=== PATIENT | male | born 1960 | race Caucasian/White ===

== ENCOUNTER 2017-09-07 08:23 | Observation (INO) | payer OTHER ==
[~2017-09-07] VITALS: Ht 188 cm; Wt 152.9 kg
[~2017-09-07 08:23] MED LIST: HYDACE7.5 PO; LISHYD2025 PO; LISI20 PO; LOSARTAN-HCTZ1 EAC1 PO; Lovastatin20 MG PO; METF500 PO; METO100ER PO; NAPR220 PO; SULTRIDS PO
[2017-09-12 05:43] LABS: BASOPHILS ABSOLUTE AUTO 0.01 K/mm3 (0.00-0.23); BASOPHILS PERCENT AUTO 0 % (0-2); EOSINOPHILS ABSOLUTE AUTO 0.01 K/mm3 (0.00-0.68); EOSINOPHILS PERCENT AUTO 0 % (0-6); Hematocrit 41.6 % (37.0-53.0); Hemoglobin 14.4 g/dL (13.5-17.5); IMMATURE GRAN PERCENT AUTO 1 % (0-1); LYMPHOCYTES ABSOLUTE AUTO 0.98 K/mm3 (0.84-5.20); LYMPHOCYTES PERCENT AUTO 7 % (21-46); MONOCYTES ABSOLUTE AUTO 0.91 K/mm3 (0.16-1.47); MONOCYTES PERCENT AUTO 6 % (4-13); Mean Corpuscular HGB 30.7 pg (26.0-34.0); Mean Corpuscular HGB Conc 34.6 g/dL (31.5-36.5); Mean Corpuscular Volume 89 fL (80-100); NEUTROPHILS ABSOLUTE AUTO 13.07 K/mm3 (1.96-9.15); NEUTROPHILS PERCENT AUTO 87 % (41-73); RDW Coefficient Variation 12.8 % (11.7-14.2); RDW Standard Deviation 41.9 fL (35.1-46.3); Red Blood Cell Count 4.69 M/mm3 (4.30-5.90); White Blood Cell Count 15.08 K/mm3 (4.00-11.30)
[2017-09-12 05:48] LABS: Mean Platelet Volume 12.7 fL (9.1-12.4)
[2017-09-12 05:50] LABS: Anion Gap 8 mmol/L (6-16); Blood Urea Nitrogen 12 mg/dL (8-24); Bun/Creatinine Ratio 22.9 (12.0-20.0); CO2, Blood 27 mmol/L (21-32); Calcium, Blood 8.5 mg/dL (8.5-10.1); Chloride, Blood 101 mmol/L (98-108); Creatinine, Blood 0.53 mg/dL (0.60-1.20); Glomerular Filtration Rate >60 (60-); Glucose, Blood 135 mg/dL (70-99); Potassium, Blood 3.4 mmol/L (3.5-5.5); Sodium, Blood 136 mmol/L (136-145)
[2017-09-12 06:31] LABS: Mean Platelet Volume 10.6 fL (9.1-12.4); Platelet Count 195 K/mm3 (150-400)
[2017-09-12] MEDS ORDERED: Percocet 5-3251 EACH PO (08:12)
[2017-09-12] MEDS ORDERED: XARELTO10 MG PO (08:12)
== END 2017-09-12 13:20 | disposition home or self-care (01) ==
LOC: PRE IP 09-11 08:47 → SURS 09-11 08:47 → PRE IP 09-11 10:30 → SURS 09-11 14:55
PROVIDERS: Orthopaedic Surgery
PROC: 0SRC06Z Replacement of Right Knee Joint with Oxidized Zirconium on Polyethylene Synthetic Substitute, Open Approach (ICD-10-PCS; principal; 2017-09-11 10:30)
DX: M17.11 Unilateral primary osteoarthritis, right knee (principal); E66.01 Morbid (severe) obesity due to excess calories; I10 Essential (primary) hypertension; E11.9 Type 2 diabetes mellitus without complications; M06.9 Rheumatoid arthritis, unspecified; Z68.41 Body mass index [BMI] 40.0-44.9, adult; G47.33 Obstructive sleep apnea (adult) (pediatric); Z98.890 Other specified postprocedural states; Z87.891 Personal history of nicotine dependence; Z88.8 Allergy status to other drugs, medicaments and biological substances
CPT/HCPCS: 36415; 73560-RT; 80048; 82947; 85025; 85049; 86850; 86900; 86901; 88300; 94762; 96374; 96375; 96376; 97110; 97116; 97162; 97530; C1776; G0378; G8978; G8979; J0171; J0360; J0690; J0735; J1100; J1885; J2250; J2405; J2710; J2795; J3010; J7120

== ENCOUNTER → 2019-02-03 | Outpatient (CLI) | payer OTHER ==
[~2019-02-03] MED LIST changes: +AMLO5 PO; +CIPR500 PO; +Percocet 5-3251 EACH PO; +XARELTO10 MG PO
[2019-02-03 17:43] LABS: Bilirubin, Urine Neg (Neg); Blood, Urine 5+ (Neg); Glucose Qualitative, Urine Neg (Neg); Ketones, Urine 1+ (Neg); Leukocyte Esterase, Urine 1+ (Neg); Nitrite, Urine Neg (Neg); Protein, Urine 2+ (Neg); Urobilinogen, Urine NORM (Normal)
[2019-02-03 17:59] LABS: Appearance, Urine Cloudy (Clear); Color, Urine Red (P-Yellow)
[2019-02-03 18:00] LABS: Red Blood Cells, Urine TNTC /hpf (0-2); Squamous Epithelial Cells Few /hpf (Few); White Blood Cells, Urine 0-2 /hpf (0-5)
[2019-02-03 18:01] LABS: Bacteria Rare /hpf
== END ==
LOC: LAB SHORT 17:15 → LAB 17:15
PROVIDERS: Nurse Practitioner Family
DX: R35.0 Frequency of micturition (principal)
CPT/HCPCS: 81001; 87086

== ENCOUNTER 2019-02-06 09:03 | Emergency (ER) | payer OTHER ==
[~2019-02-06] VITALS: Ht 193 cm; Wt 155.1 kg
[~2019-02-06 09:03] MED LIST changes: -AMLO5 PO; -CIPR500 PO
[2019-02-06] MEDS ORDERED: AMLO5 PO (10:28)
[2019-02-06 10:29] LABS: BASOPHILS ABSOLUTE AUTO 0.04 K/mm3 (0.00-0.23); BASOPHILS PERCENT AUTO 0 % (0-2); EOSINOPHILS ABSOLUTE AUTO 0.08 K/mm3 (0.00-0.68); EOSINOPHILS PERCENT AUTO 1 % (0-6); Hematocrit 48.5 % (37.0-53.0); IMMATURE GRAN ABSOLUTE AUTO 0.04 K/mm3 (0.00-0.10); IMMATURE GRAN PERCENT AUTO 0 % (0-1); LYMPHOCYTES ABSOLUTE AUTO 1.52 K/mm3 (0.84-5.20); LYMPHOCYTES PERCENT AUTO 13 % (21-46); MONOCYTES ABSOLUTE AUTO 1.09 K/mm3 (0.16-1.47); MONOCYTES PERCENT AUTO 9 % (4-13); Mean Corpuscular HGB 31.9 pg (26.0-34.0); Mean Corpuscular HGB Conc 35.1 g/dL (31.5-36.5); Mean Corpuscular Volume 91 fL (80-100); NEUTROPHILS ABSOLUTE AUTO 8.93 K/mm3 (1.96-9.15); NEUTROPHILS PERCENT AUTO 76 % (41-73); RDW Coefficient Variation 12.7 % (11.7-14.2); RDW Standard Deviation 41.8 fL (35.1-46.3); Red Blood Cell Count 5.33 M/mm3 (4.30-5.90)
[2019-02-06] MEDS ORDERED: CIPR500 PO (10:29)
[2019-02-06 10:35] LABS: Mean Platelet Volume 12.5 fL (9.1-12.4); Platelet Count 29 K/mm3 (150-400)
[2019-02-06 11:06] LABS: Alanine Aminotransfer (ALT/SGP 50 U/L (12-78); Albumin, Blood 4.4 g/dL (3.4-5.0); Albumin/Globulin Ratio 1.2 (0.8-1.8); Alk Phos 75 U/L (50-136); Anion Gap 11 mmol/L (6-16); Aspartate Aminotrans (AST/SGOT 23 U/L (12-37); Bilirubin, Total 1.8 mg/dL (0.1-1.0); Blood Urea Nitrogen 19 mg/dL (8-24); Bun/Creatinine Ratio 14.8 (12.0-20.0); CO2, Blood 25 mmol/L (21-32); Calcium, Blood 9.5 mg/dL (8.5-10.1); Chloride, Blood 100 mmol/L (98-108); Creatinine, Blood 1.28 mg/dL (0.60-1.20); Globulin, Blood 3.8 g/dL (2.2-4.0); Glomerular Filtration Rate >60 (60-); Glucose, Blood 150 mg/dL (70-99); Potassium, Blood 3.5 mmol/L (3.5-5.5); Sodium, Blood 136 mmol/L (136-145); Total Protein, Blood 8.2 g/dL (6.4-8.2)
[2019-02-06 12:12] LABS: Source, Urine Clean Catch
[2019-02-06 12:17] LABS: Appearance, Urine Hazy (Clear); Bilirubin, Urine Neg (Neg); Blood, Urine 5+ (Neg); Color, Urine Yellow (P-Yellow); Glucose Qualitative, Urine Neg (Neg); Ketones, Urine 4+ (Neg); Leukocyte Esterase, Urine 1+ (Neg); Nitrite, Urine Neg (Neg); Protein, Urine 2+ (Neg); Specific Gravity, Urine 1.025 (1.003-1.022); Urobilinogen, Urine NORM (Normal)
[2019-02-06 12:34] LABS: Bacteria Rare /hpf; Red Blood Cells, Urine TNTC /hpf (0-2); Squamous Epithelial Cells Few /hpf (Few); White Blood Cells, Urine 0-2 /hpf (0-5)
== END 2019-02-06 15:20 | disposition short-term general hospital (02) ==
LOC: ER 09:03
PROVIDERS: Emergency Medicine
DX: N13.2 Hydronephrosis with renal and ureteral calculous obstruction (principal); I10 Essential (primary) hypertension; Z87.891 Personal history of nicotine dependence; Z79.899 Other long term (current) drug therapy; Z79.84 Long term (current) use of oral hypoglycemic drugs
CPT/HCPCS: 36415; 74176; 80053; 81001; 83690; 85025; 87086; 96361; 96374; 99285-25; J1885; J7120

== ENCOUNTER → 2019-03-21 | Outpatient (CLI) | payer OTHER ==
[~2019-03-21] MED LIST changes: +AMLO5 PO; +CIPR500 PO
[2019-03-25 09:07] LABS: BRUSHITE 2.55 ratio (0.00-3.00); CALCIUM OXALATE 14.39 ratio (0.00-6.00); CALCIUM, URINE 18.7 mg/dL (Not Estab.); CALCIUM, URINE 280.5 mg/24 hr (100.0-300.0); CHLORIDE URINE 243 (110-250); CITRIC ACID (CITRATE) 612 mg/L (Not Estab.); CITRIC ACID(CITRATE) 918 mg/24 hr (320-1240); CREATININE, URINE 161.7 mg/dL (Not Estab.); CREATININE, URINE 2425.5 mg/24 hr (1000.0-2000.0); MAGNESIUM, URINE 8.3 mg/dL (Not Estab.); MONOSODIUM URATE 16.16 ratio (0.00-4.00); OSMOLALITY, URINE 783 (300-900); SODIUM, URINE 176 mmol/L (Not Estab.); SODIUM, URINE 264 (58-337); STRUVITE 0.06 ratio (0.00-1.00); URIC ACID 2.93 ratio (0.00-1.20); URINE VOLUME 1500 mL/24 hr (800-1800); URINE VOLUME (PRESERVATIVE) 1500 mL/24 hr (800-1800)
== END | disposition home or self-care (01) ==
LOC: LAB SHORT 10:00 → LAB 10:00 → LAB FUT 03-13 16:05
PROVIDERS: Urology
DX: N20.1 Calculus of ureter (principal)
CPT/HCPCS: 81003; 81050; 82131; 82140; 82340; 82436; 82507; 82570; 83735; 83935; 83945; 84105; 84133; 84300; 84392; 84560

== ENCOUNTER → 2019-08-15 | Outpatient (CLI) | payer OTHER ==
[2019-08-25 12:06] LABS: BRUSHITE 2.52 ratio (0.00-3.00); CALCIUM OXALATE 6.55 ratio (0.00-6.00); CALCIUM, URINE 16.7 mg/dL (Not Estab.); CHLORIDE URINE 93 (110-250); CITRIC ACID (CITRATE) 489 mg/L (Not Estab.); CITRIC ACID(CITRATE) 1467 mg/24 hr (320-1240); CREATININE, URINE 67.6 mg/dL (Not Estab.); MONOSODIUM URATE 1.43 ratio (0.00-4.00); OSMOLALITY, URINE 314 (300-900); SODIUM, URINE 132 (58-337); SODIUM, URINE 44 mmol/L (Not Estab.); STRUVITE 0.02 ratio (0.00-1.00); URIC ACID 1.02 ratio (0.00-1.20); URINE VOLUME 3000 mL/24 hr (800-1800); URINE VOLUME (PRESERVATIVE) 3000 mL/24 hr (800-1800)
== END | disposition home or self-care (01) ==
LOC: LAB SHORT 12:30 → LAB 12:30 → LAB FUT 05-28 15:00
PROVIDERS: Urology
DX: Z12.5 Encounter for screening for malignant neoplasm of prostate (principal); N20.1 Calculus of ureter
CPT/HCPCS: 81003; 81050; 82131; 82140; 82340; 82436; 82507; 82570; 83735; 83935; 83945; 84105; 84133; 84300; 84392; 84560

== ENCOUNTER 2021-04-07 14:07 | Emergency (ER) | payer OTHER ==
[~2021-04-07] VITALS: Ht 193 cm; Wt 146.5 kg
[2021-04-07 15:22] LABS: Alanine Aminotransfer (ALT/SGP 121 U/L (12-78); Albumin, Blood 2.3 g/dL (3.4-5.0); Albumin/Globulin Ratio 0.6 (0.8-1.8); Alk Phos 629 U/L (50-136); Anion Gap 11 mmol/L (6-16); Aspartate Aminotrans (AST/SGOT 82 U/L (12-37); Bilirubin, Total 5.7 mg/dL (0.1-1.0); Blood Urea Nitrogen 12 mg/dL (8-24); CO2, Blood 19 mmol/L (21-32); Calcium, Blood 8.2 mg/dL (8.5-10.1); Chloride, Blood 105 mmol/L (98-108); Creatinine, Blood 0.75 mg/dL (0.60-1.20); Globulin, Blood 3.8 g/dL (2.2-4.0); Glomerular Filtration Rate >60 (60-); Glucose, Blood 178 mg/dL (70-99); Potassium, Blood 3.4 mmol/L (3.5-5.5); Sodium, Blood 135 mmol/L (136-145); Total Protein, Blood 6.1 g/dL (6.4-8.2)
[2021-04-07 17:18] LABS: BASOPHILS ABSOLUTE AUTO 0.07 K/mm3 (0.00-0.23); BASOPHILS PERCENT AUTO 1 % (0-2); EOSINOPHILS ABSOLUTE AUTO 1.94 K/mm3 (0.00-0.68); EOSINOPHILS PERCENT AUTO 18 % (0-6); Hematocrit 36.6 % (37.0-53.0); Hemoglobin 11.8 g/dL (13.5-17.5); IMMATURE GRAN ABSOLUTE AUTO 0.29 K/mm3 (0.00-0.10); IMMATURE GRAN PERCENT AUTO 3 % (0-1); LYMPHOCYTES ABSOLUTE AUTO 0.75 K/mm3 (0.84-5.20); LYMPHOCYTES PERCENT AUTO 7 % (21-46); MONOCYTES ABSOLUTE AUTO 2.08 K/mm3 (0.16-1.47); MONOCYTES PERCENT AUTO 19 % (4-13); Mean Corpuscular HGB 27.1 pg (26.0-34.0); Mean Corpuscular HGB Conc 32.2 g/dL (31.5-36.5); Mean Corpuscular Volume 84 fL (80-100); NEUTROPHILS ABSOLUTE AUTO 5.94 K/mm3 (1.96-9.15); NEUTROPHILS PERCENT AUTO 54 % (41-73); RDW Coefficient Variation 16.4 % (11.7-14.2); RDW Standard Deviation 49.7 fL (35.1-46.3); Red Blood Cell Count 4.35 M/mm3 (4.30-5.90); White Blood Cell Count 11.07 K/mm3 (4.00-11.30)
[2021-04-07 17:30] LABS: Platelet Count 191 K/mm3 (150-400)
[2021-04-07] MEDS ORDERED: AZIT250 PO (19:28)
== END 2021-04-07 19:40 | disposition home or self-care (01) ==
LOC: ER 14:07
PROVIDERS: Physician Assistant
DX: J18.9 Pneumonia, unspecified organism (principal); F17.210 Nicotine dependence, cigarettes, uncomplicated; I10 Essential (primary) hypertension; Z79.899 Other long term (current) drug therapy
CPT/HCPCS: 36415; 71046; 71260; 80053; 83690; 83880; 84484; 85025; 93005; 93010; 96374; 96375; 99285-25; A9270; J1170; J2405; Q9967